=== PATIENT | female | born 1990 | race African-American/Black ===

== ENCOUNTER 2016-12-11 16:31 | Emergency (ER) | payer OTHER ==
[2016-12-11 16:38] VITALS: BMI 37.6
[2016-12-11 17:36] VITALS: BP 114/69; PULSE 87; TEMP 99
--- NOTE | 2016-12-11 17:37 | PDOC ---
History of Present Illness - General History Source: Patient - History of Present Illness Initial Comments: 12/11/16 17:32 Patient is an otherwise healthy 26 year old at 13.2 weeks with twins by LMP presenting 5 hours after the start of painless vaginal bleeding. Patient was at [employer] when she first noticed bleeding, endorses approximately 2.5 pads of total blood loss, denies any pain and is not currently bleeding. Patient first presented to [facility] where she received blood work and a pelvic exam. She was told she had normal blood work and a closed cervix but the wait for ultrasound would be several hours so they decided to go to [facility]. [facility] performed repeat blood work which was again normal and referred patient to [facility] for an US. Patient reported that she is A+ LMP 09/10; No history of STD care from [facility]. Her last checkup was November 16 and was normal. <Gabriel Marina - Last Filed: 12/11/16 18:14> <Lindsey Adams - Last Filed: 12/11/16 19:47> - General Chief Complaint: Vaginal Bleeding Stated Complaint: Vaginal Bleeding Time Seen by Provider: 12/11/16 17:11 Past History - Past Medical History Other medical history: NONE - Psycho/Social/Smoking Cessation Hx Suicidal Ideation: No Smoking History: Never smoked Hx Alcohol Use: No Drug/Substance Use Hx: No <Gabriel Marina - Last Filed: 12/11/16 18:14> <Lindsey Adams - Last Filed: 12/11/16 19:47> - Past Medical History Allergies/Adverse Reactions: Allergies Allergy/AdvReac Type Severity Reaction Status Date / Time No Known Allergies Allergy Verified 12/11/16 16:38 Home Medications: Ambulatory Orders Vit/Iron Fumarate/FA [ Tablet] 1 each PO DAILY 12/11/16 Review of Systems - Review of Systems Able to Perform ROS?: Yes Is the patient limited Albanian proficient: No Constitutional: Yes: Symptoms Reported, See HPI, Chills, Diaphoresis, Fever, Loss of Appetite, Malaise, Night Sweats, Weakness, Weight Stable, Unintentional Wgt. Loss, Unexplained wgt Loss, Other HEENTM: No: Symptoms Reported, See HPI, Eye Pain, Blurred Vision, Tearing, Recent change in vision, Double Vision, Cataracts, Ear Pain, Ocular Prothesis, Ear Discharge, Nose Pain, Nose Congestion, Tinnitus, Nose Bleeding, Hearing Loss , Throat Pain, Throat Swelling, Mouth Pain, Dental Problems, Difficulty Swallowing, Mouth Swelling, Other Respiratory: No: Symptoms reported, See HPI, Cough, Orthopnea, Shortness of Breath, SOB with Exertion, SOB at Rest, Stridor, Wheezing, Productive cough, Hemoptysis, Other Cardiac (ROS): No: Symptoms Reported, See HPI, Chest Pain, Edema, Irregular Heart Rate, Lightheadedness, Palpitations, Syncope, Chest Tightness, Other ABD/GI: Yes: Other (scant vaginal bleeding) Musculoskeletal: No: Symptoms Reported, See HPI, Back Pain, Gout, Joint Pain, Joint Swelling, Muscle Pain, Muscle Weakness, Neck Pain, Joint Stiffness, Other Psychiatric: No: Anxiety, Depression, Frequent Crying, Stressors, Sleep Pattern Change, Emotional Problems, Mood Swings, Change in Appetite, Other Endocrine: No: Symptoms Reported, See HPI, Excessive Sweating, Flushing, Intolerance to Cold, Intolerance to Heat, Increased Hunger, Increased Thirst, Increased Urine, Unexplained Weight Gain, Unexplained Weight Loss, Change in Weight, Other Hematologic/Lymphatic: No: Symptoms Reported, See HPI, Anemia, Blood Clots, Easy Bleeding, Easy Bruising, Bleeding Diathesis, Lymph Node Abnormalities, Swollen Glands, Other <Lindsey Adams - Last Filed: 12/11/16 19:47> *Physical Exam - Vital Signs Last Vital Signs Temp Pulse Resp BP Pulse Ox 98.1 F 83 20 104/51 99 12/11/16 16:34 12/11/16 16:34 12/11/16 16:34 12/11/16 16:34 12/11/16 16:34 <Gabriel Marina - Last Filed: 12/11/16 18:14> - Vital Signs Last Vital Signs Temp Pulse Resp BP Pulse Ox 99 F 87 18 114/69 95 12/11/16 17:35 12/11/16 17:35 12/11/16 17:35 12/11/16 17:35 12/11/16 17:35 - Physical Exam General Appearance: Yes: Nourished, Appropriately Dressed HEENT: positive: Normal ENT Inspection Neck: positive: Supple Respiratory/Chest: positive: Lungs Clear Cardiovascular: positive: Regular Rhythm, Regular Rate Female Pelvic Exam: positive: vaginal bleeding Gastrointestinal/Abdominal: positive: Soft Musculoskeletal: positive: Normal Inspection Extremity: positive: Normal Inspection, Normal Range of Motion Integumentary: positive: Normal Color, Warm Neurologic: positive: Fully Oriented, Alert, Motor Strength 5/5 <BryanLindseyduncan Gibson - Last Filed: 12/11/16 19:47> ED Treatment Course - RADIOLOGY Radiology Studies Ordered: Category Date Time Status <14WKS US [US] Stat Ultrasound 12/11/16 17:29 Taken <Lindsey Adams - Last Filed: 12/11/16 19:47> Medical Decision Making - Medical Decision Making 12/11/16 18:08 Patient was sent for vaginal ultrasound <Gabriel Marina - Last Filed: 12/11/16 18:14> - Medical Decision Making 12/11/16 19:45 26-year-old female had some vaginal bleeding earlier today and went to [facility]. She also was seen at [facility] emergency department and then she said they told her her cervix was closed and did a CBC. She said that her blood type was A+ She came because she wanted an ultrasound that was not done at [facility] Ultrasound here showed a twin gestation 13 weeks 2 days, one fetus had a heart tone of 119 and a second fetus had a heart tones 142 minute period. She does have a [facility] and she will follow-up with them tomorrow <Lindsey Adams - Last Filed: 12/11/16 19:47> *DC/Admit/Observation/Transfer <Gabriel Marina - Last Filed: 12/11/16 18:14> <Lindsey Adams - Last Filed: 12/11/16 19:47> Diagnosis at time of Disposition: Threatened - Discharge Dispostion Disposition: HOME Condition at time of disposition: Stable - Referrals Referrals: Maria G Holley MD [Primary Care Provider] - - Patient Instructions Printed Discharge Instructions: DI for Threatened
== END 2016-12-11 19:22 | disposition home or self-care (01) ==
LOC: JER 16:31
DX: O20.0 Threatened abortion (principal); Z3A.13 13 weeks gestation of pregnancy
CPT/HCPCS: 36415; 76801-TC; 84702; 99282-25